=== PATIENT | male | born 1925 | race Caucasian/White ===

== ENCOUNTER 2016-07-04 21:17 | Observation (INO) | payer MEDICARE ==
[2016-07-04] MEDS ORDERED: NALOXONE 0.4 MG/ML 1 ML VIAL IV PRN (22:29)
[2016-07-04] MEDS ORDERED: ACETAMINOPHEN TAB 325 MG TAB PO PRN (22:29)
[2016-07-04] MEDS ORDERED: ONDANSETRON 4 MG/2 ML VIAL IVP PRN (22:29)
--- NOTE | 2016-07-04 22:29 | ED ---
General Adult HPI - General Chief complaint: Allergic Reaction Stated complaint: Allergic Reaction Time Seen by Provider: 07/04/16 21:25 Source: patient Mode of arrival: EMS Limitations: no limitations - History of Present Illness Initial comments: This 89-year-old white male presents as a transfer from [facility] for angioedema of his tongue. He states that at approximately 1:00 PM today he developed some swelling to his tongue. He had some mild dizziness. He denies any rash or shortness of breath or difficulty breathing. He was given Solu-Medrol Pepcid and Benadryl at the other hospital. He was transferred here for further evaluation and treatment. He states that the medications didn't seem to help. He states that the swelling decreased. Report from the other hospital relates that he was on lisinopril and this potentially could be the cause of the angioedema. He denies any other complaints or modifying factors. - Related Data Home Medications Medication Instructions Recorded Confirmed ALPRAZolam [Xanax XR] 0.5 mg PO HS PRN 01/26/16 07/04/16 Aspirin 81 mg PO DAILY 01/26/16 07/04/16 Atorvastatin [Lipitor] 80 mg PO HS 01/26/16 07/04/16 Furosemide [Lasix] 20 mg PO DAILY 01/26/16 07/04/16 Nitroglycerin Sl Tabs [Nitrostat] 0.4 mg SUBLINGUAL DIRECTED PRN 01/26/16 amLODIPine BESYLATE [Norvasc] 2.5 mg PO BID 01/26/16 07/04/16 Clopidogrel [Plavix] 75 mg PO DAILY 07/04/16 07/04/16 Doxazosin [Cardura] 4 mg PO DAILY 07/04/16 07/04/16 Allergies Allergy/AdvReac Type Severity Reaction Status Date / Time JOSUE Inhibitors Allergy Swelling Verified 07/04/16 22:15 Review of Systems ROS Statement: Those systems with pertinent positive or pertinent negative responses have been documented in the HPI. ROS Other: All systems not noted in ROS Statement are negative. Past Medical History Past Medical History: Cancer, Hyperlipidemia, Myocardial Infarction ([place]), Osteoarthritis (OA), Prostate Disorder, Skin Disorder Additional Past Medical History / Comment(s): "bruises-bleeds easily", enlarged prostate, hx skin cancer Last Myocardial Infarction Date:: 12/2015 History of Any Multi-Drug Resistant Organisms: None Reported Past Surgical History: Appendectomy, Heart Catheterization With Stent, Joint Replacement Additional Past Surgical History / Comment(s): Melanoma removed from R shoulder , total R hip replacement, joey cataracts Past Anesthesia/Blood Transfusion Reactions: No Reported Reaction Date of Last Stent Placement:: 12/2015 Past Psychological History: No Psychological Hx Reported Additional Psychological History / Comment(s): . Smoking Status: Former smoker Past Alcohol Use History: None Reported Additional Past Alcohol Use History / Comment(s): Pt states he started smoking at the age of 19 yrs. (1944) and quit about 1960. Past Drug Use History: None Reported - Past Family History Father Family Medical History: CVA/TIA Additional Family Medical History / Comment(s): . Mother Family Medical History: Cancer Additional Family Medical History / Comment(s): . General Exam - General Exam Comments Initial Comments: GENERAL: The patient is well nourished and well hydrated. VITAL SIGNS: Heart rate, blood pressure, respiratory rate reviewed as recorded in nurse's notes. EYES: Pupils are round and reactive. Extraocular movements are intact. No conjunctival / lid redness or swelling. ENT: No external evidence of injury, swelling, or ecchymosis. Airway is patent. Throat is clear. There is swelling noted to the tongue more so on the right side which is minimal to moderate. There is no throat swelling or lip swelling. NECK: Nontender. No swelling or evidence of injury. No subcutaneous emphysema. Trachea is midline. No thyroid mass. HEART: Regular rate and rhythm. Good peripheral pulses. LUNGS/CHEST: Breath sounds clear and equal bilaterally. No rales, rhonchi, or wheezes. No ecchymosis, subcutaneous emphysema, or tenderness. ABDOMEN: Abdomen soft without tenderness. No palpable masses or organomegaly. No peritoneal signs. No abdominal wall swelling or ecchymosis. EXTREMITIES: No extremity tenderness. Normal muscle tone and function. No thoracolumbar tenderness. NEUROLOGIC: Sensation is grossly intact. Cranial nerve exam reveals face is symmetrical, tongue is midline, speech is clear. SKIN: No abrasions or ecchymosis is noted. No induration or masses noted. PSYCHIATRIC: Alert and oriented. Appropriate behavior and judgment. Limitations: no limitations Course Vital Signs 07/04/16 21:18 Temperature 97.8 F Pulse Rate 71 Respiratory 18 Rate Blood Pressure 165/83 O2 Sat by Pulse 94 L Oximetry Medical Decision Making - Medical Decision Making The patient was seen and examined. Old records from previous hospital were reviewed. Patient appears to be improving at this time but it is felt as though he would so require admission to the hospital for continued medications and symptom resolution. He was informed to list Josue inhibitors as an ALLERGY in the future for all provider encounters. The case was discussed with internal medicine and they're agreeable to admission. Disposition Clinical Impression: Angioedema Disposition: ADMITTED IP TO THIS HOSP Condition: Fair Time of Disposition: 22:29 Decision Date: 07/04/16 Decision Time: 22:29
[2016-07-04] MEDS ORDERED: NITROGLYCERIN SL TABS 0.4 MG TAB SUBLINGUAL PRN (22:31)
[2016-07-05] MEDS: diphenhydrAMINE 50 MG/ML 1 ML VIAL IVP SCH ×3 (00:04→11:33)
[2016-07-05] MEDS ORDERED: ALPRAZolam 0.25 MG TAB PO PRN (09:00)
[2016-07-05] MEDS ORDERED: FAMOTIDINE 20 MG/2 ML VIAL IV SCH (09:00)
[2016-07-05] MEDS: ASPIRIN 81 MG CHEW PO SCH (09:56)
[2016-07-05] MEDS: CLOPIDOGREL 75 MG TAB PO SCH (09:56)
[2016-07-05] MEDS: DOXAZOSIN 4 MG TAB PO SCH ×2 (09:56→10:08)
[2016-07-05] MEDS: FUROSEMIDE 20 MG TAB PO SCH (09:57)
[2016-07-05] MEDS: amLODIPine 2.5 MG TAB PO SCH ×2 (09:57→20:50)
[2016-07-05] MEDS: methylPREDNISolone SOD SUCCI 125 MG/2 ML VIAL IV SCH ×2 (09:57→13:04)
[2016-07-05] MEDS: ENOXAPARIN 40 MG/0.4 ML SYRINGE SQ SCH (10:07)
[2016-07-05 17:22] LABS: Basophils % (A) 0 %; CH 32.8; CHCM 33.3; Eosinophils % (A) 0 %; HCT 41.4 % (39.0-53.0); HDW 2.81; HGB 13.4 gm/dL (13.0-17.5); Luc # (Auto) 0.05; Luc % (Auto) 1; Lymphocytes # (A) 0.5 k/uL (1.0-4.8); Lymphocytes % (A) 5 %; MCH 32.3 pg (25.0-35.0); MCHC 32.5 g/dL (31.0-37.0); MCV 99.3 fL (80.0-100.0); Macrocytosis Slight; Mean Platelet Volume 7.6; Monocytes # (A) 0.1 k/uL (0-1.0); Monocytes % (A) 1 %; Neutrophils # (A) 9.3 k/uL (1.3-7.7); Neutrophils % (A) 93 %; RBC 4.17 m/uL (4.30-5.90); RDW 14.3 % (11.5-15.5); WBC (Perox) 11.02
[2016-07-05 17:31] LABS: Anion Gap 11 mmol/L; Blood Urea Nitrogen 22 mg/dL (9-20); Calcium 9.7 mg/dL (8.4-10.2); Carbon Dioxide 26 mmol/L (22-30); Chloride 104 mmol/L (98-107); Glucose 200 mg/dL (74-99); Non-African American GFR(MDRD) >60 (>60 ml/min/1.73 sqM); Potassium 4.9 mmol/L (3.5-5.1); Sodium 141 mmol/L (137-145)
[2016-07-05] MEDS ORDERED: ATORVASTATIN 80 MG TAB PO SCH (21:00)
[2016-07-05] MEDS ORDERED: DOXAZOSIN 4 MG TAB PO SCH (21:00)
--- NOTE | 2016-07-05 23:12 | HP ---
DATE OF ADMISSION: 07/04/2016 CHIEF COMPLAINT: Allergic reaction, transferred from [facility]. HISTORY OF PRESENT ILLNESS: Mr. Diaz is an 89-year-old male with a known history of benign prostatic hypertrophy, coronary artery, status post stent placement in December 2015, and bilateral cataracts, osteoarthritis was initially sent from [facility] where he presented with tongue swelling. Apparently, patient noticed tongue swelling around 1:00 p.m. yesterday and also felt some dizziness. Patient presented to [facility] initially where he was given Benadryl, methyl prednisone and Zantac and was transferred to [facility] for further evaluation. Patient denied any new change or new medications. Patient was taking Lisinopril but it was stopped two months ago. Patient is not taking Lasix also on daily basis. Patient denied any food allergy. Denied any unusual food intake. Patient says that he took some salad yesterday, but it is not unusual for him to eat salad every day. Patient was started on Methyl prednisolone, Pepcid and Benadryl which relieved his symptoms and tongue swelling is much better now. Otherwise, exact etiology of tongue swelling is not known at this time. The patient denied any recent illnesses. No sick contacts. No recent flulike symptoms. REVIEW OF SYSTEMS: CONSTITUTIONAL: No fever. No chills. No weakness, malaise. RESPIRATORY: No cough or sputum production. No short of breath. CARDIOVASCULAR: No chest pain. No short of breath. No leg swelling. ABDOMEN: No nausea or vomiting or abdominal pain. GENITOURINARY: Negative. ENDOCRINE: Negative. PSYCHIATRY: Negative. SKIN: Patient has a rash on the hands, which has been there for a few weeks. All other fourteen-point review of systems. PAST MEDICAL HISTORY: Skin cancer, hyperlipidemia, history of NC, coronary artery disease, osteoarthritis, prostate disorder. The patient bruises and bleeds easily. PAST SURGICAL HISTORY: Appendectomy. Cardiac catheterization with stent placement, joint replacement, melanoma removed from right shoulder, total right hip replacement, bilateral cataracts surgery. No psychosocial history. SOCIAL HISTORY: The patient is a former smoker, started smoking age 19 and quit in 1960. Otherwise, denied alcohol use, denied any drugs or IVDU. FAMILY HISTORY: Father had a CVA/TIA, mother has cancer. ALLERGIES: INCLUDE KEVIN INHIBITORS. Home medication of: 1. Xanax. 2. Aspirin. 3. Atorvastatin. 4. Lasix. 5. Nitrostat. 6. Amlodipine. 7. Plavix. 8. Cardura. PHYSICAL EXAMINATION: An 89-year-old male lying in bed, awake, alert and oriented times three, appears to be in no apparent distress. VITALS: Blood pressure is 155/76, pulse is 63, respirations 16, temperature afebrile, pulse ox 95% on room air. HEENT: Atraumatic, normocephalic. Neck is supple. No JVD. CVS: S1, S2 heard. No murmurs, no gallop, no rub. LUNGS: Bilateral air entry is present. No wheezing. No crackles. Nonlabored breathing. ABDOMEN: Soft, nontender. Bowel sounds are present. MASK INSPECTOR: Awake, alert, oriented x3. No focal deficits. EXTREMITIES: No edema, pulses palpable bilaterally. No clubbing or cyanosis. SKIN: Patient does have dry scaly skin on the hands. Eczematic rash on the dorsum of the hand on both sides. HEENT: Patient does have mild tongue swelling on the right side, ( ) midline and no throat narrowing or redness or swelling. LABORATORY DATA: Not available at this time. IMPRESSION: 1. Tongue swelling/angioedema exact etiology unknown at this time. Patient is not taking Lisinopril for the past 2 months and not using Lasix but did improve with Methyl prednisolone, Benadryl and Pepcid. 2. Benign prostatic hypertrophy. 3. History of skin cancer/melanoma removed. 4. History of coronary artery disease in December status post stent placement. 5. Bilateral cataracts surgery. 6. Osteoarthritis with placement of right hip total arthroplasty. DISCUSSION AND PLAN: Patient will be continued on home medications. Start back on his home medications and tongue swelling is almost normalized. Will follow up closely. Monitor another 24 hours and further recommendations based on the clinical course.
[2016-07-06] MEDS: CLOPIDOGREL 75 MG TAB PO SCH (08:34)
[2016-07-06] MEDS: ASPIRIN 81 MG CHEW PO SCH (08:34)
[2016-07-06] MEDS: amLODIPine 2.5 MG TAB PO SCH (08:34)
[2016-07-06] MEDS: ENOXAPARIN 40 MG/0.4 ML SYRINGE SQ SCH (08:35)
[2016-07-06] MEDS: FUROSEMIDE 20 MG TAB PO SCH (08:35)
[2016-07-06] MEDS ORDERED: FAMOTIDINE 20 MG TAB PO SCH (09:00)
[2016-07-06 11:48] VITALS: BP 109/57; PULSE 53; RESP 18; TEMP 97.4
--- NOTE | 2016-07-08 07:45 | DS ---
DATE OF ADMISSION: 07/04/2016 DATE OF DISCHARGE: 07/06/2016 DISCHARGE DIAGNOSES: 1. Swelling/angioedema, exact etiology unknown. Patient was started back on his home medications with no recurrence of symptoms. 2. Benign prostatic hypertrophy. 3. History of skin cancer/melanoma. 4. History of coronary artery disease in 2016, status post stent placement. 5. Bilateral cataract surgery. 6. Osteoarthritis with replacement of right hip total arthroplasty. HOSPITAL COURSE: Mr. Diaz is 89-year-old male with the above medical problems admitted to the hospital with complaints of tongue swelling. Apparently initially presented to [facility] and from there he was sent to [facility] for further evaluation. Patient was continued on IV methylprednisolone and Benadryl and Pepcid. Patient did improve clinically. Otherwise exact etiology for tongue swelling is not iron clad. Patient has stopped using lisinopril about two months back and also not using Lasix recently. Patient was started back on his home medications while in the hospital and stopped methylprednisone and Benadryl. Patient did not have any recurrence of symptoms. He tolerated his medications very well. The possibility of ( ) induced medications as etiology of tongue swelling. The patient was advised to come back to the hospital if he feels any tongue swelling and recommended to take Benadryl 25 mg t.i.d. p.r.n. for allergies. Patient is clinically much improved now. No tongue swelling now. Tolerating p.o. diet and medications have been tolerated. The patient is stable to be discharged home and follow with the primary physician. DISCHARGE PHYSICAL EXAMINATION: An 89-year-old male lying in the bed. Awake, alert, oriented x3, appears to be in no apparent distress. VITALS: Blood pressure is 109/57, pulse is 53, respirations 18, temperature afebrile, pulse ox 97% on room air. HEENT: Atraumatic, normocephalic. Neck is supple. No JVD. CVS: S1, S2 heard. No murmurs, no gallop, no rub. LUNGS: Bilateral air entry is present. No wheezing. No crackles. Nonlabored breathing. ABDOMEN: Soft, nontender. Bowel sounds are present. POST ANESTHESIA CARE UNIT NURSE: Awake, alert and oriented x3. No focal deficit. EXTREMITIES: No edema. Pulses palpable. no clubbing or cyanosis. PSYCHIATRIC: Cooperative. LABORATORY DATA: Reviewed. Discharge physical examination done. Discharge medications include: 1. Xanax 0.5 mg p.o. at bedtime p.r.n. for anxiety. 2. Aspirin 81 mg p.o. daily. 3. Atorvastatin 80 mg p.o. at bedtime. 4. Lasix 20 mg p.o. daily. 5. Nitroglycerin 0.4 mg sublingual p.r.n. for chest pain. 6. Amlodipine 2.5 mg p.o. b.i.d. 7. Plavix 75 mg p.o. daily. 8. Cardura 4 mg p.o. daily. 9. Benadryl 25 mg p.o. t.i.d. p.r.n. for itching/allergies. Activity as tolerated. Follow with Dr. Jensen. Home with self-care.
== END 2016-07-06 16:30 | disposition home or self-care (01) ==
LOC: EC 21:17 → 3OBS 22:29
PROVIDERS: ADMIT Internal Medicine; ATTEND Internal Medicine
DX: T78.3XXA Angioneurotic edema, initial encounter (principal); R42 Dizziness and giddiness; N40.0 Benign prostatic hyperplasia without lower urinary tract symptoms; E78.5 Hyperlipidemia, unspecified; Z85.820 Personal history of malignant melanoma of skin; Z95.5 Presence of coronary angioplasty implant and graft; I25.10 Atherosclerotic heart disease of native coronary artery without angina pectoris; M19.90 Unspecified osteoarthritis, unspecified site; Z96.641 Presence of right artificial hip joint; I25.2 Old myocardial infarction; Z87.891 Personal history of nicotine dependence; Z79.82 Long term (current) use of aspirin; Z79.899 Other long term (current) drug therapy; Z79.02 Long term (current) use of antithrombotics/antiplatelets; Z88.8 Allergy status to other drugs, medicaments and biological substances; Z82.3 Family history of stroke
CPT/HCPCS: 99285; 93005; 80048; 85025; G0378 ×3; J1200; J2930; J1650; 96372; 96374; 96375; 96376

== ENCOUNTER → 2017-03-01 | Outpatient (CLI) | payer MEDICARE ==
[2017-03-01 16:48] LABS: Basophils % (A) 0 %; CH 30.8; Eosinophils # (A) 0.2 k/uL (0-0.7); Eosinophils % (A) 3 %; HDW 2.58; HGB 13.1 gm/dL (13.0-17.5); Luc # (Auto) 0.06; Luc % (Auto) 1; Lymphocytes # (A) 1.4 k/uL (1.0-4.8); Lymphocytes % (A) 21 %; MCH 31.7 pg (25.0-35.0); MCHC 32.7 g/dL (31.0-37.0); MCV 97.1 fL (80.0-100.0); Mean Platelet Volume 7.4; Monocytes # (A) 0.4 k/uL (0-1.0); Monocytes % (A) 6 %; Neutrophils # (A) 4.5 k/uL (1.3-7.7); Neutrophils % (A) 68 %; RBC 4.12 m/uL (4.30-5.90); RDW 15.3 % (11.5-15.5); WBC 6.6 k/uL (3.8-10.6); WBC (Perox) 7.02
[2017-03-01 16:53] LABS: Anion Gap 6 mmol/L; Blood Urea Nitrogen 21 mg/dL (9-20); Calcium 9.7 mg/dL (8.4-10.2); Carbon Dioxide 29 mmol/L (22-30); Chloride 106 mmol/L (98-107); Glucose 97 mg/dL (74-99); Non-African American GFR(MDRD) >60 (>60 ml/min/1.73 sqM); Potassium 4.9 mmol/L (3.5-5.1); Sodium 141 mmol/L (137-145)
== END | disposition home or self-care (01) ==
LOC: LABPAT 15:38
PROVIDERS: ATTEND Urology
DX: Z01.812 Encounter for preprocedural laboratory examination (principal); C67.4 Malignant neoplasm of posterior wall of bladder; I10 Essential (primary) hypertension; R53.83 Other fatigue; Z79.899 Other long term (current) drug therapy
CPT/HCPCS: 36415; 80048; 85025

== ENCOUNTER 2017-03-05 12:32 | Day surgery (SDC) | payer MEDICARE ==
[~2017-03-05 12:32] MED LIST: HYDROmorphone 0.5 MG/0.5 ML SYRINGE IVP PRN; MIDAZOLAM 2 MG/2 ML VIAL IV PRN; Pre Op ABX Message 1 EACH MISC MISCELLANE ONE; diphenhydrAMINE 25 MG CAP PO ONE
[2017-03-05] MEDS: LACTATED RINGERS 1,000 ML IV SCH (13:33)
[2017-03-05] MEDS ORDERED: ONDANSETRON 4 MG/2 ML VIAL IVP ONE (13:33)
[2017-03-05] MEDS ORDERED: LIDOCAINE 1% 20 ML VIAL (10MG/ML) FOR IV START INTRADERMA ONE (13:33)
[2017-03-05] MEDS ORDERED: DEXAMETHASONE SOD PHOSPHATE 10 MG/ML 1 ML VIAL IV ONE (13:33)
[2017-03-05] MEDS ORDERED: PROPOFOL 10 MG/ML 20 ML VIAL IV ONE (15:46)
[2017-03-05] MEDS ORDERED: LIDOCAINE 1% INJ 10MG/ML (20 ML MDV) ONE (15:46)
[2017-03-05] MEDS ORDERED: fentaNYL (PF) 50 MCG/ML 2 ML AMP ONE (15:46)
[2017-03-05] MEDS ORDERED: ePHEDrine SULFATE/0.9% NACL/PF 50 MG/5 ML SYRINGE IV ONE (15:46)
[2017-03-05 17:04] VITALS: RESP 16
--- NOTE | 2017-03-05 17:35 | P.OP ---
Date of Procedure: 03/05/17 Preoperative Diagnosis: Bladder cancer Postoperative Diagnosis: Bladder cancer Procedure(s) Performed: Transurethral resection of bladder tumor Anesthesia: EMILIANO Surgeon: Rito De Paz Estimated Blood Loss (ml): 40 Pathology: other (Bladder tumor fragments) Condition: stable Disposition: PACU Indications for Procedure: Patient is an 89-year-old male with a history of gross hematuria. Cystoscopy performed in my office identified a sessile tumor on the posterior bladder wall measuring 2.5-3 cm in diameter. Transurethral resection of the tumor is planned. Description of Procedure: The patient was taken the operating suite where adequate general anesthesia via LMA was instituted. The patient was placed in the dorsal lithotomy position with his legs suspended from padded Irving stirrups. Pneumatic compression stockings were applied to the lower legs. A prophylactic dorsal urethrotomy to 25-Latvian was performed using the [employer] urethrotome. The 25-Latvian resectoscope sheath with visual obturator was advanced through the urethra under direct vision. The anterior urethra was unremarkable. Prostatic urethra showed a elongation and effacement of the lateral lobes in the midline and a large medium lobe which protruded into the bladder. Passage of the resectoscope through the prostatic urethra caused bleeding from the surface, especially near the bladder neck. The bladder was examined. The bladder was trabeculated with numerous small cellules. The ureteral orifices were of normal location and configuration. On the dome of the bladder was a sessile tumor which measured 2.5-3 cm in length and approximately 2 cm in width. The remainder the bladder was unremarkable. The tumor was resected down to the underlying muscle using the continuous-flow [employer] resectoscope and loop cutting electrode. All gross tumor had been removed. The tumor fragments were irrigated from the bladder through the resectoscope. Bleeding from the bladder neck and prostatic urethra was then cauterized using the loop electrode. At completion the procedure there remained some slight oozing from the prostatic surface. An 18- Latvian Garcia catheter was inserted and left to gravity drainage. Patient tolerated procedure well and left the operative room awake and in satisfactory condition. Blood loss was between 30 and 40 mL. The patient will be discharged if his urine remains pink tinged and will be admitted overnight for observation if the urine is more bloody than that. Further recommendations are dependent on the tissue analysis.
[2017-03-05] MEDS ORDERED: ACETAMINOPHEN TAB 325 MG TAB PO PRN (17:55)
[2017-03-05] MEDS ORDERED: diphenhydrAMINE 25 MG CAP PO ONE (20:31)
[2017-03-05] MEDS: D5-0.45% NACL WITH KCL 20MEQ/L 1,000 ML IV SCH (21:00)
[2017-03-05] MEDS ORDERED: DOXAZOSIN 4 MG TAB PO SCH (21:00)
[2017-03-06] MEDS ORDERED: ALPRAZolam 0.5 MG TAB PO PRN
[2017-03-06] MEDS ORDERED: diphenhydrAMINE 25 MG CAP ONE (00:26)
[2017-03-06] MEDS ORDERED: CALCIUM CARBONATE 500 MG CHEWABLE PO ONE (03:25)
[2017-03-06] MEDS: LACTATED RINGERS 1,000 ML IV SCH (06:00)
[2017-03-06 07:26] LABS: Basophils % (A) 0 %; CH 31.4; CHCM 31.9; Eosinophils % (A) 0 %; HCT 37.3 % (39.0-53.0); HDW 2.55; HGB 11.9 gm/dL (13.0-17.5); Luc # (Auto) 0.06; Luc % (Auto) 1; Lymphocytes # (A) 0.5 k/uL (1.0-4.8); Lymphocytes % (A) 5 %; MCH 31.5 pg (25.0-35.0); MCHC 31.7 g/dL (31.0-37.0); MCV 99.2 fL (80.0-100.0); Macrocytosis Slight; Mean Platelet Volume 7.6; Monocytes # (A) 0.5 k/uL (0-1.0); Monocytes % (A) 5 %; Neutrophils % (A) 89 %; RBC 3.76 m/uL (4.30-5.90); RDW 15.3 % (11.5-15.5); WBC (Perox) 10.11
[2017-03-06] MEDS ORDERED: MIDODRINE 5 MG TAB PO SCH (07:30)
[2017-03-06 07:52] VITALS: BP 136/73; PULSE 56; TEMP 98.6
[2017-03-06] MEDS: D5-0.45% NACL WITH KCL 20MEQ/L 1,000 ML IV SCH (08:49)
[2017-03-06] MEDS ORDERED: TIMOLOL 0.5% OPHTH DROPS 5 ML BTL BOTH EYES SCH (09:00)
[2017-03-06] MEDS ORDERED: FUROSEMIDE 20 MG TAB PO SCH (09:00)
--- NOTE | 2017-03-06 19:55 | P.DS ---
Providers Date of admission: 03/04/2017 Expected date of discharge: 03/06/17 Attending physician: Rito De Paz Primary care physician: Stated None Hospital Course: The patient underwent TUR of a tumor located on the dome of his bladder on . He has an enlarged prostate from BPH that bled throughout the procedure and continued to bleed post op. He was admitted to observation due to the risk of catheter occlusion from clots. The patient remained afebrile and normotensive. His bladder was irrigated through the night but he had no difficulty with clotting and his urine this morning is pink in color. The patient had some problems with swelling of his tongue which he says has occurred several times over the last few months. This was treated with improvement with a combination of ice chips and oral Benadryl. The patient will be discharged with his catheter in place. He is to call me tomorrow and let me know how he is doing. If his urine remains clear he will probably remove his catheter at home on Sunday and I will see him back next week to review his path report. He will stay off aspirin until I see him in the office. Procedures: TUR bladder tumor 03/05/2017 Patient Condition at Discharge: Good Plan - Discharge Summary Discharge Rx Participant: No New Discharge Prescriptions: No Action Furosemide [Lasix] 20 mg PO DAILY PRN PRN Reason: swelling in feet ALPRAZolam [Xanax XR] 0.5 mg PO HS PRN PRN Reason: Anxiety Atorvastatin [Lipitor] 80 mg PO HS Nitroglycerin Sl Tabs [Nitrostat] 0.4 mg SUBLINGUAL DIRECTED PRN PRN Reason: Chest Pain Aspirin 81 mg PO DAILY Doxazosin [Cardura] 4 mg PO DAILY diphenhydrAMINE [Benadryl] 25 mg PO TID PRN #15 capsule PRN Reason: allergies Discharge Medication List ALPRAZolam [Xanax XR] 0.5 mg PO HS PRN 01/26/16 [History] Aspirin 81 mg PO DAILY 01/26/16 [History] Atorvastatin [Lipitor] 80 mg PO HS 01/26/16 [History] Furosemide [Lasix] 20 mg PO DAILY PRN 01/26/16 [History] Nitroglycerin Sl Tabs [Nitrostat] 0.4 mg SUBLINGUAL DIRECTED PRN 01/26/16 [ History] Doxazosin [Cardura] 4 mg PO DAILY 03/21/17 [History] diphenhydrAMINE [Benadryl] 25 mg PO TID PRN #15 capsule 07/06/16 [Rx] Follow up Appointment(s)/Referral(s): [facility], [NON-STAFF] - Rito De Paz MD [STAFF PHYSICIAN] - 03/13/17 8:40 am () Patient Instructions/Handouts: Transurethral Prostatectomy (DC), Garcia Catheter Placement and Care (DC) Activity/Diet/Wound Care/Special Instructions: To call Dr De Paz on 03/07 in morning.[phone] option #1 Stay off aspirin until OK'd by Dr De Paz Discharge Disposition: HOME SELF-CARE
== END 2017-03-06 11:52 | disposition home or self-care (01) ==
LOC: OR 12:32 → 3SUR 18:10 → OR 03-06 11:52
PROVIDERS: ATTEND Urology
DX: C67.1 Malignant neoplasm of dome of bladder (principal); N40.1 Benign prostatic hyperplasia with lower urinary tract symptoms; R39.12 Poor urinary stream; R35.1 Nocturia; I25.10 Atherosclerotic heart disease of native coronary artery without angina pectoris; I25.2 Old myocardial infarction; I12.9 Hypertensive chronic kidney disease with stage 1 through stage 4 chronic kidney disease, or unspecified chronic kidney disease; N18.9 Chronic kidney disease, unspecified; Z87.891 Personal history of nicotine dependence; Z79.82 Long term (current) use of aspirin; Z79.52 Long term (current) use of systemic steroids; Z79.899 Other long term (current) drug therapy; Z95.5 Presence of coronary angioplasty implant and graft; Z88.8 Allergy status to other drugs, medicaments and biological substances; Z91.09 Other allergy status, other than to drugs and biological substances
CPT/HCPCS: 85025; 88307